=== PATIENT | male | born 1995 | race Two or more races ===

== ENCOUNTER 2018-03-02 04:59 | Emergency (ER) | payer OTHER ==
[2018-03-02 05:07] VITALS: BP 141/83
--- NOTE | 2018-03-02 05:31 | ER Document Report ---
HPI - HPI Patient complains to provider of: sore throat Pain Level: 4 Context: Patient is a 22-year-old male presenting to the emergency department complaining of sore throat and cough for the last 5 days. Patient also reports 2 episodes of posttussive vomiting. Patient denies diarrhea, abdominal pain, chest pain, congestion, fever, shortness of breath. Past medical history: None Medications: None allergies: None surgical history: None Patient denies cigarette smoking, illicit drug use, admits to occasional EtOH use Past Medical History - General Information source: Patient - Social History Smoking Status: Former Smoker Lives with: Family Family History: Reviewed & Not Pertinent Vertical Provider Document - CONSTITUTIONAL Agree With Documented VS: Yes Notes: GENERAL: Alert, interacts well. No acute distress. HEAD: Normocephalic, atraumatic. EYES: Pupils equal, round, and reactive to light. Extraocular movements intact. ENT: Oral mucosa moist, tongue midline. Nares patent, turbinates nonswollen, TM' s intact, not erythematous, nonbulging. Pharynx minorly erythematous, tonsils + 2 bilaterally, no exudate noted, no palatal petechiae. NECK: Full range of motion. Supple. Trachea midline. Slight anterior cervical lymphadenopathy noted LUNGS: Clear to auscultation bilaterally, no wheezes, rales, or rhonchi. No respiratory distress. HEART: Regular rate and rhythm. No murmur ABDOMEN: Soft, non-tender. Non-distended. Bowel sounds present in all 4 quadrants. EXTREMITIES: Moves all 4 extremities spontaneously. No edema, normal radial and dorsalis pedis pulses bilaterally. No cyanosis. BACK: no cervical, thoracic, lumbar midline tenderness. No saddle anesthesia, normal distal neurovascular exam. NEUROLOGICAL: Alert and oriented x3. Normal speech. cranial nerves II through XII grossly intact. PSYCH: Normal affect, normal mood. SKIN: Warm, dry, normal turgor. No rashes or lesions noted. Course - Re-evaluation Re-evalutation: 03/02/18 05:45 Rapid strep negative. Will treat for viral pharyngitis, upper respiratory infection. Return precautions discussed - Vital Signs Vital signs: Temp Pulse Resp BP Pulse Ox 98.4 F 76 19 141/83 H 96 03/02/18 05:06 03/02/18 05:06 03/02/18 05:06 03/02/18 05:06 03/02/18 05:06 Discharge - Discharge Clinical Impression: Pharyngitis Qualifiers: Pharyngitis/tonsillitis etiology: unspecified etiology Qualified Code(s): J02.9 - Acute pharyngitis, unspecified Condition: Stable Disposition: HOME, SELF-CARE Instructions: Sore Throat ([facility]) Additional Instructions: As we discussed you have been seen and treated in the emergency department for a sore throat. Your test results revealed no signs of bacterial infection. You should treat your sore throat with Tylenol and Motrin at home. Please take cough medication as prescribed. Always follow-up with your primary care provider in the next 24-48 hours. Return to the emergency room for any other concerning symptoms Prescriptions: Benzonatate [Tessalon Perles 100 mg Capsule] 100 mg PO Q8HP PRN #40 capsule PRN Reason:
== END 2018-03-02 05:52 | disposition home or self-care (01) ==
LOC: ER 04:59
DX: J02.9 Acute pharyngitis, unspecified (principal); R05 Cough; R11.10 Vomiting, unspecified
CPT/HCPCS: 87070; 87880; 99283